=== PATIENT | male | born 2000 | race Two or more races ===

== ENCOUNTER 2021-01-13 04:46 | Emergency (ER) | payer MEDICAID, SELFPAY ==
--- NOTE | ~2021-01-13 | CT_ITS ---
EXAMINATION: CT HEAD WITHOUT CONTRAST CLINICAL INFORMATION: Fall, intoxicated COMPARISON: 01/21/2013 TECHNIQUE: Contiguous axial imaging was performed from the skull base to vertex without intravenous administration of contrast. This CT examination was performed using dose optimization techniques as appropriate, variously including the following: *Automated exposure control *Adjustment of mA and/or kV according to patient size (this includes techniques or standardized protocols for targeted exams where dose is matched to indication/reason for exam; i.e. extremities or head) *Use of iterative reconstruction technique DLP: 811 mGy-cm FINDINGS: There is no evidence of acute intracranial hemorrhage or territorial infarction. No abnormal mass effect or midline shift is seen. Melgar to white matter differentiation is well preserved. No extra-axial fluid collections are identified. The ventricles are normal in size. There is no abnormal attenuation within the brain parenchyma. The osseous structures and soft tissues are normal. Mucous retention cyst in the left maxillary sinus. The mastoid air cells are well-aerated. CT/CT head/brain wo con IMPRESSION: No acute intracranial pathology.
--- NOTE | 2021-01-13 04:49 | PC.NURSE ---
CALLED TO FRONT ENTRANCE BY LUDLOW MACHINE OPERATOR OF VEHICLE WHO STATES THAT HIS FRIEND IS OVERDOSED IN CAR. PT IN FRONT SEAT, UNRESPONSIVE TO STERNAL RUB WITH PINPOINT PUPILS IN DARK ENVIRONMENT. ADMINISTERED NASAL NARCAN AND PT IMMEDIATELY OPENED EYES BEFORE NARCAN HAD A CHANCE TO BE EFFECTIVE. PT'S FRIEND REPORTS PATIENT TOOK PILLS FROM [employer] WHILE IN BATHROOM AT CLUB. PT SMOKED WEED IN CAR, SAME WEED THAT ALL 3 MALES SMOKED. FRIEND REPORTS PT WAS UNRESPONSIVE IN CAR FOR 45 MINUTES AND NOT BREATHING AT TIMES, BEFORE THEY DROVE HIM TO ER. PT REFUSING TO GET OUT OF CAR, FRIEND NOT WILLING TO BRING PT HOME. [employer] CALLED TO HELP WITH SCENE. PT DID EVENTUALLY AGREE TO COME INTO ER FOR EVALUATION. PT UNSTEADY ON FEET WHEN STANDING.
[2021-01-13 04:56] VITALS: BP 157/93; PULSE 71; RESP 16; O2SAT 100; BMI 27.6
--- NOTE | 2021-01-13 05:06 | ED.OVERDOSE ---
HPI - Overdose General Chief Complaint: ETOH/Substance Use Stated Complaint: OD Time Seen by Provider: 01/13/21 05:05 Source: other (Friends) Mode of arrival: wheelchair Limitations: altered mental status History of Present Illness HPI Narrative: Patient is brought to the emergency room by a friend in private vehicle. The friend reports that the patient was pounding at a club earlier today, took pills in the bathroom, seems that maybe he passed out in the bathroom, then seems that patient was able to get up, walk towards the car looking for marijuana. The family/friends report that the patient was unresponsive for 45 minutes in the car, they could not wake him up and therefore brought him to the emergency room. In the ER, patient was Narcan in the car, woke up immediately. Patient did not want to come in, PD called, convinced to come in for evaluation. Related Data Allergies Allergy/AdvReac Type Severity Reaction Status Date / Time No Known Allergies Allergy Unverified 05/18/20 18:32 Review of Systems Review of Systems: Yes Unobtainable due to mental condition [facility] Past Medical History Medical History (Updated 01/13/21 @ 06:14 by Andree Worthington MD) Substance abuse Social History Social History Advance Directives: Yes Advance Directives Information Provided: No Advance Directives on File: No Physical Exam Vital Signs: Vital Signs: Last Vital Signs Pulse 71 01/13/21 04:56 Resp 16 01/13/21 04:56 BP 157/93 H 01/13/21 04:56 Pulse Ox 100 01/13/21 04:56 Body Mass Index 27.6 Appearance: Somnolent, awake, keeps rolling in his bed side to side Eyes: myadriasis, Pupils equal, round and reactive to light. ENT: Pharynx normal. Neck: Normal inspection. Neck supple. No lymph nodes noted. No crepitus CVS: Normal heart rate and rhythm. Pulses normal. Normal S1 and S2 Respiratory: No respiratory distress. Breath sounds normal. No Wheezing. No rales Abdomen: Soft and nontender. No rigidity. No distention. Skin: Skin warm and dry. Normal skin color. Normal skin turgor. Extremities: No lower extremity edema. Neuro: Intoxicated, awake, cranial nerves 2-12 grossly intact Course Course Course Narrative: Head CT within normal limits. The mother is at bedside, states that the patient left against medical advice a few days from a detox program. Sign out given to Dr. Fajardo MDM - Overdose Imaging Data CT scan - head: Radiologist's impression: FINDINGS: There is no evidence of acute intracranial hemorrhage or territorial infarction. No abnormal mass effect or midline shift is seen. Melgar to white matter differentiation is well preserved. No extra-axial fluid collections are identified. The ventricles are normal in size. There is no abnormal attenuation within the brain parenchyma. The osseous structures and soft tissues are normal. Mucous retention cyst in the left maxillary sinus. The mastoid air cells are well-aerated. CT/CT head/brain wo con IMPRESSION: No acute intracranial pathology. Discharge Plan Discharge Clinical Impression: Substance abuse Overdose Qualifiers: Encounter type: initial encounter
[2021-01-13 06:00] VITALS: BP 134/86; PULSE 86; RESP 16; O2SAT 97
[2021-01-13 08:29] VITALS: RESP 16; O2SAT 97
--- NOTE | 2021-01-13 08:29 | PC.NURSE ---
momtadeo phone number [phone]) [phone])
--- NOTE | 2021-01-13 09:23 | MHC.RECOVSUP ---
Recovery Support note: Patient is a 20 year old Romansh speaking male who presented to [facility] ED due to a suspected overdose. This inspector automatic typewriter attempted to meet with patient to discuss substance use and treatment options. Patient was sleeping at the start of consultation, awoke briefly and fell back asleep. This inspector automatic typewriter was unable to meaningfully engage with patient in a discussion regarding his substance use. Patient reports he has been smoking cannabis and using other substances to get high. Patient reports he was in [place] for detox a few days ago. This inspector automatic typewriter started to discuss resources and supports with patient when patient fell back asleep. This inspector automatic typewriter met with patient's mother who to discuss patient's substance use and treatment options. Mother reports patient was going to go to college and play basketball but it all fell apart and patient has been dealing with anxiety and substance use since then. Mother feels patient would benefit from outpatient therapy. Discussed MAT, outpatient therapy, IOP, [facility] youth [facility] program with patient's mother. Provided her with contact information for this inspector automatic typewriter and the recovery support RN in the event that she has any questions regarding resources provided. This inspector automatic typewriter will contact patient tomorrow to see if he has any questions regarding resources provided. Discussed case with patient's ED provider.
[2021-01-13] MEDS: Naloxone HCl Nasal TAKE HOME 4 MG SPRAY NOSTRILALT (09:30)
--- NOTE | 2021-01-13 09:30 | PC.NURSE ---
narcan given for at home, per order.
== END 2021-01-13 09:32 | disposition home or self-care (01) ==
PROVIDERS: Emergency Provider Emergency Medicine Emergency Medical Services
DX: F19.10 Other psychoactive substance abuse, uncomplicated (principal); T50.901A Poisoning by unspecified drugs, medicaments and biological substances, accidental (unintentional), initial encounter; R40.0 Somnolence; Y92.29 Other specified public building as the place of occurrence of the external cause
CPT/HCPCS: 70450; 99284; 99285

== ENCOUNTER 2021-02-27 10:30 | Outpatient (REF) | payer MEDICAID, SELFPAY ==
[2021-03-04 06:51] LABS: Norfentanyl, Ur >500.0
[2021-03-04 06:55] LABS: Codeine, Ur NEGATIVE; Hydrocodone, Ur NEGATIVE; Hydromorphone, Ur NEGATIVE; Morphine, Ur 1792; Norhydrocodone, Ur NEGATIVE; Noroxycodone, Ur NEGATIVE; Oxycodone, Ur NEGATIVE; Oxymorphone, Ur NEGATIVE
== END 2021-02-27 10:31 | disposition home or self-care (01) ==
LOC: HO.LAB 10:30
PROVIDERS: Visit Provider Internal Medicine
DX: F11.99 Opioid use, unspecified with unspecified opioid-induced disorder (principal); F19.10 Other psychoactive substance abuse, uncomplicated; Z79.899 Other long term (current) drug therapy
CPT/HCPCS: 80305; 80354; 80364; 80365; 99202

== ENCOUNTER → 2022-02-04 10:12 | Outpatient (BNVA) | payer MEDICAID, SELFPAY | PROVIDERS: Visit Provider Internal Medicine | DX: F11.20 Opioid dependence, uncomplicated (principal) | CPT/HCPCS: 80305; 99212 ==

== ENCOUNTER 2023-01-20 20:40 | Emergency (ER) | payer BC, MEDICAID, SELFPAY ==
--- NOTE | 2023-01-20 | ECG_ITS ---
Test Reason : OVERDOSE Blood Pressure : / mmHG Vent. Rate : 088 BPM Atrial Rate : 088 BPM P-R Int : 162 ms QRS Dur : 100 ms QT Int : 358 ms P-R-T Axes : 052 075 016 degrees QTc Int : 433 ms Normal sinus rhythm Normal ECG No previous ECGs available Referred By: Generic ED Physician Electronically Signed By:BERNARD LEACH
[2023-01-20 20:44] VITALS: BP 133/88; BP 137/92; PULSE 110; PULSE 96; RESP 18; TEMP 36.6; O2SAT 100; BMI 25.1
--- NOTE | 2023-01-20 20:48 | PC.NURSE ---
pt refusing blood work at this time
--- NOTE | 2023-01-20 20:51 | PC.NURSE ---
Pt refusing capnography and cardiac monitoring at this time saying this hurts I don't want it on me . Pt educated on the importance of monitoring heart and respirations after an overdose. Pt still expressing noncompliance about it at this time. MD aware, will continue to monitor.
[2023-01-20] MEDS: Naloxone HCl Nasal TAKE HOME 4 MG SPRAY NOSTRILALT (21:18)
--- NOTE | 2023-01-20 21:25 | ED_ITS ---
HPI - Overdose General Chief Complaint: ETOH/Substance Use Stated Complaint: unresponsive Time Seen by Provider: 01/20/23 21:03 Source: patient Mode of arrival: EMS History of Present Illness HPI Narrative: 22-year-old male states that he relapsed, denies any suicidal ideation was found unresponsive in a car by a vise dander and given a total of 8 mg of Narcan. Patient refusing all attempts with detox. Patient adamant about leaving. Related Data Previous Rx's Medication Instructions Recorded buprenorphine 300 mg/1.5 mL 300 mg (1.5 mL) subcut ONCE 30 02/27/21 solution,exten.rel.subcutaneous days #1.5 mL syringe (Sublocade) buprenorphine 8 mg-naloxone 2 mg 2 film sublingual DAILY 7 days #14 02/27/21 sublingual film (Suboxone) ea buprenorphine 4 mg-naloxone 1 mg 2 film sublingual DAILY 7 days #14 02/04/22 sublingual film (Suboxone) ea Allergies Allergy/AdvReac Type Severity Reaction Status Date / Time No Known Allergies Allergy Verified 02/04/22 10:22 Review of Systems Review of Systems: Pertinent positives and negatives as stated in HPI PMFSH Past Medical History Source: nursing notes reviewed Medical History Opioid use disorder Substance abuse Social History Social History Alcohol intake: never Smoked in Last 30 Days: No e-Cigarette/Vaping Use: Currently Using Use of substances other than those prescribed or required for medical reasons: Refusing to respond Substance Use Type: Marijuana Physical Exam Vital Signs: Vital Signs: Last Vital Signs Temp 97.8 F 01/20/23 20:44 Pulse 96 01/20/23 20:44 Resp 18 01/20/23 20:44 BP 137/92 H 01/20/23 20:44 Pulse Ox 100 01/20/23 20:44 O2 Del Method Room Air 01/20/23 20:44 BMI result Body Mass Index 25.1 VITAL SIGNS: Reviewed. GENERAL: Well developed, well nourished, in no acute distress. HEAD: Normocephalic/atraumatic EYES: PERRLA, EOMI EARS: Ext canals without abnormality OROPHARYNX: no oral lesions noted, posterior pharynx clear NECK: Supple, no adenopathy LUNGS: Normal breath sounds. No adventitious sounds or accessory muscle use. SpO2<100> CARDIOVASCULAR: Regular rate and rhythm without noted murmurs ABDOMEN: Soft, non-tender, non-distended with bowel sounds. MUSCULOSKELETAL: No tenderness, deformities, or effusions noted on gross inspection. EXTREMITIES: No cyanosis, clubbing or edema. SKIN: Inspection of the skin reveals no rashes NEUROLOGIC: Alert and oriented x 4. Strength and sensation to light touch were grossly intact x 4. Medications Administered Discontinued Medications Generic Name Dose Route Start Last Admin Trade Name Freq PRN Reason Stop Dose Admin Naloxone HCl 4 mg 01/20/23 21:04 01/20/23 21:18 Naloxone Hcl Nasal Take Home 4 Mg [place] NOSTRILALT 01/20/23 21:05 4 mg ONCE ONE Administration Medical Decision Making Medical Decision Making [facility] Narrative: 22-year-old male with overdose on heroin, accidental, received 8 mg of Narcan fully awake and alert here in the emergency room no evidence of drowsiness at this time. Patient is adamant about leaving, will be discharged with home Narcan and his mother will be picking him up. Differential Diagnosis Please see the discussion above Independent Interpretation I performed an independent interpretation of an: EKG Interpretation: Normal sinus rhythm, HR-88, no STEMI, FL/QRS/QTC is within normal limits. Discharge Plan Discharge Clinical Impression: Accidental overdose Patient Disposition: Home, Self-Care Instructions: Adult Overdose (ED) Additional Instructions: 1. You have been given home Narcan should you require it or if anyone in your facility requires reversal. 2. Please continue on your Suboxone. Return to the ER for any worsening symptoms. Prescriptions: No Action buprenorphine-naloxone [Suboxone] 8-2 mg film 2 film sublingual DAILY 7 Days Qty: 14 0RF Rx Instructions: place 1 strip/tab under (each) side of tongue Sublocade 300 mg/1.5 mL solution, extended rel syringe 300 mg subcut ONCE 30 Days Qty: 1.5 1RF buprenorphine-naloxone [Suboxone] 4-1 mg film 2 film sublingual DAILY 7 Days Qty: 14 0RF Rx Instructions: place 1 strip/tab under (each) side of tongue
== END 2023-01-20 22:04 | disposition home or self-care (01) ==
LOC: HO.ED 21:35
PROVIDERS: Emergency Provider Student in an Organized Health Care Education/Training Program
DX: R40.4 Transient alteration of awareness (principal); T40.1X1A Poisoning by heroin, accidental (unintentional), initial encounter; F11.10 Opioid abuse, uncomplicated; Y92.810 Car as the place of occurrence of the external cause
CPT/HCPCS: 93005; 99283; 99285

== ENCOUNTER 2023-04-16 18:23 | Inpatient (IN) | payer BC, MEDICAID, SELFPAY ==
--- NOTE | ~2023-04-16 | CT_ITS ---
EXAMINATION: CT SOFT TISSUE NECK WITH CONTRAST CLINICAL INFORMATION: Left facial swelling. COMPARISON: None available. TECHNIQUE: Following the intravenous administration of 100 mL of Omnipaque 350 intravenous contrast, helical imaging was performed in the axial plane with generation of coronal and sagittal reformatted images. This CT examination was performed using dose optimization techniques as appropriate, variously including the following: *Automated exposure control *Adjustment of mA and/or kV according to patient size (this includes techniques or standardized protocols for targeted exams where dose is matched to indication/reason for exam; i.e. extremities or head) *Use of iterative reconstruction technique DLP: 501 mGy-cm FINDINGS: There is a large left peritonsillar hypodensity suggestive of abscess with cellulitis and underlying enlarged left palatine tonsil from acute tonsillitis. Moderate deviation of pharyngeal airway to the right of midline is noted. The right tonsil is normal with right parapharyngeal soft tissues appearing normal. There is moderate enlarged left carotid/jugular lymph nodes. The largest lymph node measures 1.5 cm on sagittal image 41/7. Visualized bilateral parotid and the submandibular glands are symmetrical and normal. The left submandibular gland is slightly displaced inferiorly due to acute tonsillitis. There is mild mucoperiosteal thickening left maxillary sinus. The right maxillary, frontal, ethmoid and sphenoid sinuses are clear. The mastoid sinuses are clear as well. Visualized intraparenchymal brain parenchyma is unremarkable. There is reversal of cervical lordosis with no bony abnormality seen. CT/CT soft tissue neck w IV con IMPRESSION: Acute left tonsillitis with moderate size left peritonsillar abscess deviating the airway to the right of midline. Reactive but abnormal left carotid/jugular lymph nodes.
[2023-04-16 18:43] VITALS: BP 134/90; PULSE 120; RESP 20; TEMP 36.9; O2SAT 99; BMI 22.4
--- NOTE | 2023-04-16 18:43 | ED_ITS ---
HPI - Dental/Oral General Chief complaint: Dental/Oral Stated complaint: infection in mouth Time Seen by Provider: 04/16/23 19:46 Source: patient Mode of arrival: ambulatory Limitations: no limitations History of Present Illness HPI Narrative: Patient been having throat pain for last 1 week seen dentist advise to have his wisdom tooth removed. Comes here as for last 2 days has more pain in the throat unable to swallow unable to open his mouth no fever Related Data Home Medications Medication Instructions Recorded Confirmed acetaminophen 325 mg tablet 650 mg PO Q6H PRN Pain 04/16/23 04/16/23 amoxicillin 500 mg capsule 500 mg PO TID 04/16/23 04/16/23 ibuprofen 800 mg tablet 800 mg PO Q4-6H PRN pain 04/16/23 04/16/23 Allergies Allergy/AdvReac Type Severity Reaction Status Date / Time No Known Allergies Allergy Verified 02/04/22 10:22 Review of Systems 2 Review of Systems: Yes all other systems are reviewed and are negative [facility] Past Medical History Medical History Opioid use disorder Substance abuse Social History Social History Alcohol intake: unknown Patient Tobacco Use Status: Never used Tobacco Smoked in Last 30 Days: No e-Cigarette/Vaping Use: Currently Using Use of substances other than those prescribed or required for medical reasons: No Substance Use Type: Marijuana Advance Directives: No Advance Directives Information Provided: No Nutrition Risks: No Nutritional Risk Physical Exam Vital Signs: Vital Signs: Last Vital Signs Temp 98.9 F 04/17/23 00:00 Pulse 95 04/17/23 00:00 Resp 18 04/17/23 00:00 BP 143/89 H 04/17/23 00:00 Pulse Ox 97 04/17/23 00:00 O2 Del Method Room Air 04/17/23 00:00 BMI result Body Mass Index 22.4 Appearance: Alert. Oriented X3. No acute distress. ENT: Pharynx normal. Oral Mucosa moist left peritonsillar abscess+++ unable to open mouth more than 2 cm Neck: Normal inspection. Neck supple. Upper cervical lymphadenopathy++ CVS: Normal heart rate and rhythm. Pulses normal. Respiratory: No respiratory distress. Equal air entry bilateral, no wheezing/rales/rhonchi Abdomen: Soft and nontender. Bowel sounds are present, Skin: Skin warm and dry. Normal skin color. Normal skin turgor. Neuro: Oriented X 3. Course Course Course Narrative: KAROLINE: 23-year-old male with a past medical history of substance abuse, presenting to the ED complaining of left-sided facial swelling, sore throat, difficulty talking/swallowing x 2 days. Admits he is supposed to have all 4 of his wisdom teeth extracted, saw his dentist this week and is supposed to follow- up with oral surgeon however cannot get in until September + trismus, left-sided facial swelling noted with uvular deviation to the right. Appears very uncomfortable Labs, ESR/CRP, neck CT ordered. IVF, IV Toradol, IV Decadron ordered Full HPI, ROS and PE to be performed by primary ED provider. Medications Administered Generic Name Dose Route Start Last Admin Trade Name Freq PRN Reason Stop Dose Admin Enoxaparin Sodium 40 mg 04/16/23 23:00 04/16/23 23:09 Enoxaparin Sodium 40 Mg/0.4 Ml Syringe SUBCUT Not Given Q24H BHUPINDER Ampicillin Sodium/Sulbactam 100 mls @ 200 mls/hr 04/16/23 23:00 04/16/23 23:44 Sodium 3 gm/ Sodium Chloride IV Infused Q6H BHUPINDER Infusion Sodium Chloride 3 ml 04/17/23 00:00 04/16/23 23:59 0.9 % Sodium Chloride Flush 3 Ml Syringe IVFLUSH 3 ml QSHIFT BHUPINDER Administration Discontinued Medications Generic Name Dose Route Start Last Admin Trade Name Freq PRN Reason Stop Dose Admin Dexamethasone Sodium Phosphate 10 mg 04/16/23 18:46 04/16/23 19:26 Dexamethasone Sod Phosphate 10 Mg/Ml Vial IVPUSH 04/16/23 18:47 10 mg ONCE ONE Administration Sodium Chloride 1,000 mls @ 999 mls/hr 04/16/23 19:00 04/16/23 20:30 Ns IV 04/16/23 20:00 Infused .Q1H1M BHUPINDER Infusion Piperacillin Sod/Tazobactam 50 mls @ 100 mls/hr 04/16/23 20:02 04/16/23 21:44 Sod 3.375 gm/ Sodium Chloride IV 04/16/23 20:31 Infused ONCE ONE Infusion Iohexol 100 ml 04/16/23 20:03 04/16/23 20:03 Iohexol 350 Mg/Ml 100 Ml Infus..Btl IV 04/16/23 20:04 60 ml ONCE ONE Administration Ketorolac Tromethamine 15 mg 04/16/23 18:46 04/16/23 19:26 Ketorolac Tromethamine 15 Mg/Ml Vial IVPUSH 04/16/23 18:47 15 mg ONCE ONE Administration Lidocaine HCl 1 appl 04/16/23 20:11 04/16/23 20:57 Lidocaine Hcl 4 % [id number]-[id number] 4 Ml TOPICAL 04/16/23 20:12 1 appl ONCE ONE Administration Lidocaine HCl 1 appl 04/16/23 21:00 04/16/23 21:51 Lidocaine Hcl 4 % [id number] 4 Ml TOPICAL 04/16/23 21:01 1 appl ONCE ONE Administration Medical Decision Making Medical Decision Making MDM Narrative: Needle aspiration was done left peritonsillar abscess and about 12 cc of pus drained Lab Data [facility] Lab Attestation statement: I reviewed the patient's lab results. 04/16/23 19:02 04/16/23 19:02 Labs: Lab Results 04/16/23 04/16/23 04/16/23 Range/Units 19:02 19:02 19:02 WBC 22.5 H (4.8-10.8) X10*3/uL RBC 4.71 (4.60-5.80) X10*6/uL Hgb 14.4 (14.0-18.0) g/dl Hct 41.6 L (42.0-52.0) % MCV 88.3 (80.0-98.0) fL MCH 30.6 (27.0-33.0) pg MCHC 34.6 (31.0-36.0) g/dl RDW 12.1 (11.0-16.0) % Plt Count 444 H (160-400) X10*3/uL MPV 9.1 L (9.4-12.4) fL Immature Gran % (Auto) 0.8 H (0.0-0.4) % Neut % (Auto) 84.2 H (45-73) % Lymph % (Auto) 7.3 L (20-40) % Calhoun % (Auto) 7.5 (2-11) % Eos % (Auto) 0.0 (0-4) % Baso % (Auto) 0.2 (0-2) % Lymph # (Auto) 1.6 (1.2-4.9) X10*3/uL [place]oun # (Auto) 1.7 H (0.1-1.2) X10*3/uL Eos # (Auto) 0.0 (0.0-0.4) X10*3/uL Baso # (Auto) 0.1 (0.0-0.2) X10*3/uL Abs Immat Gran (auto) 0.17 H (0.00-0.03) X10*3/uL Absolute Neuts (auto) 18.9 H (2.0-8.3) x10*3/uL Absolute Nucleated RBC 0.000 (0.0-0.012) X10*3/uL Nucleated RBC % (auto) 0.0 (0.0-0.2) /100WBC Smear Tech's Comments VERIFIED ESR 73 H (0-15) MM/HR Sodium 139 (135-145) mmol/L Potassium 4.1 (3.3-5.1) mmol/L Chloride 102 (96-108) mmol/L Carbon Dioxide 27 (22-29) mmol/L Anion Gap 14 (12-20) BUN 9 (9-16) mg/dL Creatinine 0.94 (0.5-1.4) mg/dL Estim Creat Clear Calc 130.4 Estimated GFR > 60 Random Glucose 133 H (60-115) mg/dL Lactic Acid (0.5-2.0) mmol/L Calcium 9.6 (8.4-10.2) mg/dL C-Reactive Protein 23.58 H (< or = 0.50) mg/dL S. pyogenes GrpA CIERA (Negative) 04/16/23 04/16/23 Range/Units 19:02 20:31 WBC (4.8-10.8) X10*3/uL RBC (4.60-5.80) X10*6/uL Hgb (14.0-18.0) g/dl Hct (42.0-52.0) % MCV (80.0-98.0) fL MCH (27.0-33.0) pg MCHC (31.0-36.0) g/dl RDW (11.0-16.0) % Plt Count (160-400) X10*3/uL MPV (9.4-12.4) fL Immature Gran % (Auto) (0.0-0.4) % Neut % (Auto) (45-73) % Lymph % (Auto) (20-40) % Cal[place]oun % (Auto) (2-11) % Eos % (Auto) (0-4) % Baso % (Auto) (0-2) % Lymph # (Auto) (1.2-4.9) X10*3/uL [place] # (Auto) (0.1-1.2) X10*3/uL Eos # (Auto) (0.0-0.4) X10*3/uL Baso # (Auto) (0.0-0.2) X10*3/uL Abs Immat Gran (auto) (0.00-0.03) X10*3/uL Absolute Neuts (auto) (2.0-8.3) x10*3/uL Absolute Nucleated RBC (0.0-0.012) X10*3/uL Nucleated RBC % (auto) (0.0-0.2) /100WBC Smear Tech's Comments ESR (0-15) MM/HR Sodium (135-145) mmol/L Potassium (3.3-5.1) mmol/L Chloride (96-108) mmol/L Carbon Dioxide (22-29) mmol/L Anion Gap (12-20) BUN (9-16) mg/dL Creatinine (0.5-1.4) mg/dL Estim Creat Clear Calc Estimated GFR Random Glucose (60-115) mg/dL Lactic Acid 0.8 (0.5-2.0) mmol/L Calcium (8.4-10.2) mg/dL C-Reactive Protein (< or = 0.50) mg/dL S. pyogenes GrpA CIERA Negative (Negative) Discharge Plan Discharge Clinical Impression: Peritonsillar abscess Patient Disposition: Admitted As Inpatient
--- NOTE | 2023-04-16 19:03 | MHC.EDTECH ---
PATIENT BLOOD DRAWN AND STREAP SWAB COLLECTED AND SENT TO LAB ,PATIENT WAS BROUGHT BACK TO ROOM # [id number].
[2023-04-16 19:08] LABS: Basophils Absolute Auto 0.1 X10*3/uL (0.0-0.2); Basophils Percent Auto 0.2 % (0-2); Hematocrit 41.6 % (42.0-52.0); Hemoglobin 14.4 g/dl (14.0-18.0); Imm Gran Abs Auto 0.17 X10*3/uL (0.00-0.03); Imm Gran Pct Auto 0.8 % (0.0-0.4); Lymphocytes Absolute Auto 1.6 X10*3/uL (1.2-4.9); Lymphocytes Percent Auto 7.3 % (20-40); MANUAL DIFF FLAG SCAN; Mean Corpuscular HGB Conc 34.6 g/dl (31.0-36.0); Mean Corpuscular Hemoglobin 30.6 pg (27.0-33.0); Mean Corpuscular Volume 88.3 fL (80.0-98.0); Mean Platelet Volume 9.1 fL (9.4-12.4); Monocytes Absolute Auto 1.7 X10*3/uL (0.1-1.2); Monocytes Percent Auto 7.5 % (2-11); Neutrophils Absolute Auto 18.9 x10*3/uL (2.0-8.3); Neutrophils Percent Auto 84.2 % (45-73); Platelet Count 444 X10*3/uL (160-400); Red Blood Count 4.71 X10*6/uL (4.60-5.80); Red Cell Distribution Width 12.1 % (11.0-16.0); SCAN SMEAR FLAG 1; White Blood Count 22.5 X10*3/uL (4.8-10.8)
[2023-04-16 19:20] LABS: Anion Gap 14 (12-20); Blood Urea Nitrogen 9 mg/dL (9-16); C Reactive Protein 23.58 mg/dL (< or = 0.50); Calcium 9.6 mg/dL (8.4-10.2); Carbon Dioxide 27 mmol/L (22-29); Chloride 102 mmol/L (96-108); Creatinine Clr Calc Pharmacy 130.4; Estimated Glomerular Filt Rate > 60; Glucose Random 133 mg/dL (60-115); Potassium 4.1 mmol/L (3.3-5.1); Sodium 139 mmol/L (135-145)
[2023-04-16 19:22] LABS: IDNOW Serial# 08D9AD1C; Strep A Nucleic Acid Negative (Negative)
[2023-04-16] MEDS: Ketorolac Tromethamine 15 MG/ML VIAL IVPUSH (19:26)
[2023-04-16] MEDS: dexAMETHasone sod phosphate 10 MG/ML VIAL IVPUSH (19:26)
[2023-04-16] MEDS: 0.9 % Sodium Chloride 1,000 ML 999 ML IV (19:26)
[2023-04-16 19:28] VITALS: PULSE 92; RESP 20; TEMP 38.3; O2SAT 98
[2023-04-16 19:42] LABS: SLIDE REVIEW VERIFIED
[2023-04-16] MEDS: iohexoL 350 MG/ML 100 ML INFUS..BTL IV (20:03)
[2023-04-16 20:19] LABS: Erythrocyte Sedimentation Rate 73 MM/HR (0-15)
--- NOTE | 2023-04-16 20:32 | PC.NURSE ---
MD MCGILL ATTEMPTED TO DRAIN ABSCESS IN MOUTH x2 but thinks the abscess is much deeper than can be reached with needle. MEDICATED WITH LIDOCAINE FIRST. PT SPITTING UP BLOOD AND SOME PUS. TOLERATING WELL REPORTS RELIEF OF PAIN. BLOOD CULTURES/LACTIC BEING DRAWN NOW BY TECH, WILL ADMINISTER ABX NEXT.
[2023-04-16 20:50] LABS: Lactic Acid 0.8 mmol/L (0.5-2.0)
[2023-04-16] MEDS: Piperacillin Sodium/Tazobactam 3.375 GM in 0.9 % Sodium Chloride 50 ML IV (20:57)
[2023-04-16] MEDS: Lidocaine HCl 4 % Laryng-O-Jet 4 ML 1 APPL TOPICAL ×2 (20:57→21:51)
--- NOTE | 2023-04-16 21:59 | PC.NURSE ---
MD MCGILL DRAINED 12 CC OF PUS FROM ABSCESS IN MOUTH . PT TOLERATED EXTREMELY WELL AND REPORTS GREAT RELIEF OF PAIN.
--- NOTE | 2023-04-16 22:25 | P.HPHOSP_ITS ---
History of Present Illness Date of Service: 04/16/23 Chief Complaint: Pain in mouth This is a 23-year-old male with pertinent history of tobacco use disorder who presents to the emergency department for evaluation of pain in mouth and fevers. Patient states he missed his appointment to remove wisdom teeth with his dentist. Over the last 1 week, he has been having left-sided swelling which has been progressive and associated with pain. On the day of presentation, patient was unable to open his mouth completely. He also has associated fevers or chills. Patient states he started amoxicillin 2 days ago but his symptoms have progressed. He denies chest discomfort, palpitations, shortness of breath, abdominal pain, changes in urinary or bowel habits. No respiratory distress. In the emergency department, imaging with tonsillitis and peritonsillar abscess. 12 cc pus drained in the ER and patient with significant improvement of symptoms. Review of Systems Constitutional: Constitutional: Reports chills, Reports fatigue and Reports fever(s) ENT: Reports dental pain and Reports sore throat Cardiovascular: Cardiovascular: Reports no additional cardiovascular complaints Respiratory: Respiratory: Reports no additional respiratory complaints Gastrointestinal: Gastrointestinal: Reports no additional gastrointestinal complaints Endocrine: Endocrine: Reports fatigue PMFSH Medical History Opioid use disorder Substance abuse Pertinent family history: No family history of early CAD Social History Alcohol intake: unknown Smoked in Last 30 Days: No e-Cigarette/Vaping Use: Currently Using Use of substances other than those prescribed or required for medical reasons: No Substance Use Type: Marijuana Advance Directives: No Advance Directives Information Provided: No Meds Allergies Allergy/AdvReac Type Severity Reaction Status Date / Time No Known Allergies Allergy Verified 02/04/22 10:22 Home Medications Medication Instructions Recorded Confirmed Last Taken Type acetaminophen 325 mg tablet 650 mg PO Q6H PRN Pain 04/16/23 04/16/23 Unknown History amoxicillin 500 mg capsule 500 mg PO TID 04/16/23 04/16/23 Unknown History ibuprofen 800 mg tablet 800 mg PO Q4-6H PRN pain 04/16/23 04/16/23 Unknown History Physical Exam Vital Signs and Narrative: Vital Signs: Last Vital Signs Temp 100.9 F H 04/16/23 19:28 Pulse 92 04/16/23 19:28 Resp 20 04/16/23 19:28 BP 134/90 H 04/16/23 18:43 Pulse Ox 98 04/16/23 19:28 O2 Del Method Room Air 04/16/23 19:28 BMI result Body Mass Index 22.4 Young male lying in bed in no distress Neck supple, no JVD, swollen left-sided tonsils with erythema Regular rate and rhythm, S1-S2 heard Regular breath sounds bilaterally, no wheezing or crackles appreciated Abdomen soft nontender, no guarding, no rigidity Patient is awake, alert and oriented to self, place, time and person ; no focal motor deficit Psych: Normal mood No pedal edema Results Labs 04/16/23 19:02 04/16/23 19:02 Labs: Laboratory Results - last 24 hr 04/16/23 04/16/23 04/16/23 19:02 19:02 19:02 MCV 88.3 MCH 30.6 MCHC 34.6 RDW 12.1 Plt Count 444 H MPV 9.1 L Immature Gran % (Auto) 0.8 H Neut % (Auto) 84.2 H Lymph % (Auto) 7.3 L [place] % (Auto) 7.5 Eos % (Auto) 0.0 Baso % (Auto) 0.2 Lymph # (Auto) 1.6 [place] # (Auto) 1.7 H Eos # (Auto) 0.0 Baso # (Auto) 0.1 Abs Immat Gran (auto) 0.17 H Absolute Neuts (auto) 18.9 H Absolute Nucleated RBC 0.000 Nucleated RBC % (auto) 0.0 Smear Tech's Comments VERIFIED ESR 73 H Anion Gap 14 Estim Creat Clear Calc 130.4 Estimated GFR > 60 Random Glucose 133 H Lactic Acid Calcium 9.6 C-Reactive Protein 23.58 H S. pyogenes GrpA CIERA 04/16/23 04/16/23 19:02 20:31 MCV MCH MCHC RDW Plt Count MPV Immature Gran % (Auto) Neut % (Auto) Lymph % (Auto) [place] % (Auto) Eos % (Auto) Baso % (Auto) Lymph # (Auto) [place] # (Auto) Eos # (Auto) Baso # (Auto) Abs Immat Gran (auto) Absolute Neuts (auto) Absolute Nucleated RBC Nucleated RBC % (auto) Smear Tech's Comments ESR Anion Gap Estim Creat Clear Calc Estimated GFR Random Glucose Lactic Acid 0.8 Calcium C-Reactive Protein S. pyogenes GrpA CIERA Negative Imaging Radiologist's Impressions: Impressions Soft Tissue Neck CT 04/16/23 20:03 IMPRESSION: Acute left tonsillitis with moderate size left peritonsillar abscess deviating the airway to the right of midline. Reactive but abnormal left carotid/jugular lymph nodes. Assessment and Plan (1) Tonsillitis: Status: Acute Plan This is a 23-year-old male with pertinent history of tobacco use disorder who presents to the emergency department for evaluation of pain in mouth and fevers. #. Sepsis due to acute tonsillitis with peritonsillar abscess. Resuscitated with IV crystalloids. Initiating empiric IV antibiotics. Percutaneous drainage done in the ER and 12 cc pus obtained. Patient with marked improvement in symptoms and is able to open his mouth and eat after I&D. Continue to monitor symptoms. Lactic acid and blood culture obtained. Will need follow-up with ENT #. Tobacco use disorder. Refused nicotine patch. Counseled regarding cessation DVT prophylaxis: Jamila Full code Admit as inpatient and will require two night minimum hospital stay for IV antibiotics Time Spent With Patient Time: Total time managing care of this patient today ____ minutes. Quality Stroke Does the patient have a stroke diagnosis?: No VTE Prior VTE?: No VTE Risk Level:: Medical - moderate - high VTE Device Contraindication: Treatment Not Indicated VTE Drug Contraindication: N/A - Med Ordered
[2023-04-16] MEDS: Ampicillin Sodium/Sulbactam Na 3 GM in 0.9 % Sodium Chloride 100 ML IV (23:06)
[2023-04-16 23:15] VITALS: BP 140/79; PULSE 110; RESP 18; TEMP 37.3; O2SAT 100
--- NOTE | 2023-04-16 23:56 | PC.NURSE ---
REPORT CALLED TO OVERFLOW RN
[2023-04-16] MEDS: 0.9 % Sodium Chloride Flush 3 ML SYRINGE IVFLUSH (23:59)
[2023-04-17] VITALS: BP 143/89; PULSE 95; RESP 18; TEMP 37.2; O2SAT 97
[2023-04-17] MEDS: Ampicillin Sodium/Sulbactam Na 3 GM in 0.9 % Sodium Chloride 100 ML IV ×4 (04:53→22:42)
[2023-04-17 05:01] LABS: Basophils Percent Auto 0.2 % (0-2); Hematocrit 38.3 % (42.0-52.0); Hemoglobin 13.5 g/dl (14.0-18.0); Imm Gran Pct Auto 0.8 % (0.0-0.4); MANUAL DIFF FLAG SCAN; Mean Corpuscular HGB Conc 35.2 g/dl (31.0-36.0); Mean Corpuscular Hemoglobin 31.2 pg (27.0-33.0); Mean Corpuscular Volume 88.5 fL (80.0-98.0); Mean Platelet Volume 9.2 fL (9.4-12.4); Monocytes Absolute Auto 1.3 X10*3/uL (0.1-1.2); Monocytes Percent Auto 5.1 % (2-11); Neutrophils Absolute Auto 22.7 x10*3/uL (2.0-8.3); Neutrophils Percent Auto 89.9 % (45-73); Platelet Count 429 X10*3/uL (160-400); Red Blood Count 4.33 X10*6/uL (4.60-5.80); Red Cell Distribution Width 12.1 % (11.0-16.0); SCAN SMEAR FLAG 1; White Blood Count 25.3 X10*3/uL (4.8-10.8)
[2023-04-17] MEDS: Acetaminophen 325 MG TABLET 650 MG PO (05:05)
[2023-04-17 05:17] LABS: Anion Gap 14 (12-20); Blood Urea Nitrogen 12 mg/dL (9-16); Calcium 9.1 mg/dL (8.4-10.2); Carbon Dioxide 24 mmol/L (22-29); Chloride 105 mmol/L (96-108); Estimated Glomerular Filt Rate > 60; Glucose Random 133 mg/dL (60-115); Potassium 4.2 mmol/L (3.3-5.1); Sodium 139 mmol/L (135-145)
[2023-04-17 05:22] LABS: SLIDE REVIEW VERIFIED
--- NOTE | 2023-04-17 07:33 | PHA.MEDREC ---
Pharmacy Consult ? Medication Reconciliation Pharmacy has completed the medication reconciliation.
--- NOTE | 2023-04-17 08:02 | PC.NURSE ---
kitchen called for applesauce to administer patients medications
[2023-04-17] MEDS: 0.9 % Sodium Chloride Flush 3 ML SYRINGE IVFLUSH (08:07)
--- NOTE | 2023-04-17 08:58 | PC.NURSE ---
patienta&ox3, vss, pt stated his pain had reduced to 2/10, pt requesting greek ice- kitchen called to obtain, PA at bedside speaking with patient, pt continues to have lt facial swelling- pt denies difficulty breathing and is speaking in full sentences, call oconnor within reach, will continue to monitor
[2023-04-17 12:11] VITALS: BP 101/56; PULSE 83; RESP 20; TEMP 36.7; O2SAT 99
--- NOTE | 2023-04-17 13:05 | PC.NURSE ---
patient a&ox3, currently denying pain, speaking in full sentences, pt eating lunch, call oconnor within reach, will continue to monitor
--- NOTE | 2023-04-17 14:16 | P.PNIM_ITS ---
Subjective Subjective Date of Service: 04/17/23 Interval History: seen and examined this morning follow up for left tonsilitis with left peritonsillar abscess s/p needle aspiration in ED patient reports feeling improved since admission but still with difficulty opening mouth. no difficulty swallowing, no drooling. feels that facial swelling has improved feeling warm but no fever documented Review of Systems Review of Systems: Yes all other systems are reviewed and are negative Constitutional Constitutional: Denies chills and Denies fever(s) Cardiovascular Cardiovascular: Denies chest pain, Denies palpitations and Denies dyspnea Respiratory Respiratory: Denies cough and Denies dyspnea Endocrine Endocrine: Denies palpitations Physical Exam Vital Signs: Vital Signs: Last Vital Signs Temp 98.1 F 04/17/23 12:11 Pulse 83 04/17/23 12:11 Resp 20 04/17/23 12:11 BP 101/56 L 04/17/23 12:11 Pulse Ox 99 04/17/23 12:11 O2 Del Method Room Air 04/17/23 12:11 BMI result Body Mass Index 22.4 Const: General: cooperative, comfortable, alert and awake Nutritional Appearance: average body habitus Orientation/consciousness: patient oriented x3 HEENT: Other: unable to open mouth wide enough to examine Resp: Effort & Inspection: normal respiratory effort, able to speak in complete sentences, no respiratory distress and no use of accessory muscles Cardio: Rate: regular rate Heart sounds: S1 normal heart sound present and S2 normal heart sound present GI: Inspection: No distended Palpation (GI): Soft to palpation and nontender Neuro: General: patient oriented x3 and CN's II-XI intact bilaterally Extrem: General: Yes no pedal edema Objective Data Active Medications Acetaminophen (Acetaminophen 325 Mg Tablet) 650 mg PO Q6H PRN PRN Reason: Pain, Mild (Pain Scale 1-3) Last Admin: 04/17/23 05:05 Dose: 650 mg Documented By: TEA Enoxaparin Sodium (Enoxaparin Sodium 40 Mg/0.4 Ml Syringe) 40 mg SUBCUT Q24H [facility] Last Admin: 04/16/23 23:09 Dose: Not Given Documented By: FRANCIA Non-Admin Reason: Patient Refused Ampicillin Sodium/Sulbactam (Sodium 3 gm/ Sodium Chloride) 100 mls @ 200 mls/hr IV Q6H [facility] Last Infusion: 04/17/23 12:15 Dose: 0 mls/hr Documented By: SYDNEY Ketorolac Tromethamine (Ketorolac Tromethamine 15 Mg/Ml Vial) 15 mg IVPUSH Q6H PRN PRN Reason: Pain, Moderate(Pain Scale 4-6) Melatonin (Melatonin 3 Mg Tablet) 6 mg PO BEDTIME PRN PRN Reason: Insomnia Ondansetron HCl (Ondansetron Hcl 4 Mg/2 Ml Vial) 4 mg IVPUSH Q8H PRN PRN Reason: Nausea and Vomiting Sodium Chloride (0.9 % Sodium Chloride Flush 3 Ml Syringe) 3 ml IVFLUSH QSHIFT [facility] Last Admin: 04/17/23 08:07 Dose: 3 ml Documented By: SYDNEY Labs 04/17/23 04:41 04/17/23 04:41 Labs: Laboratory Results - last 24 hr 04/16/23 04/16/23 04/16/23 19:02 19:02 19:02 MCV 88.3 MCH 30.6 MCHC 34.6 RDW 12.1 Plt Count 444 H MPV 9.1 L Immature Gran % (Auto) 0.8 H Neut % (Auto) 84.2 H Lymph % (Auto) 7.3 L [place] % (Auto) 7.5 Eos % (Auto) 0.0 Baso % (Auto) 0.2 Lymph # (Auto) 1.6 [place] # (Auto) 1.7 H Eos # (Auto) 0.0 Baso # (Auto) 0.1 Abs Immat Gran (auto) 0.17 H Absolute Neuts (auto) 18.9 H Absolute Nucleated RBC 0.000 Nucleated RBC % (auto) 0.0 Smear Tech's Comments VERIFIED ESR 73 H Anion Gap 14 Estim Creat Clear Calc 130.4 Estimated GFR > 60 Random Glucose 133 H Lactic Acid Calcium 9.6 C-Reactive Protein 23.58 H S. pyogenes GrpA [facility]ER[facility] 04/16/23 04/16/23 04/17/23 19:02 20:31 04:41 MCV 88.5 MCH 31.2 MCHC 35.2 RDW 12.1 Plt Count 429 H MPV 9.2 L Immature Gran % (Auto) 0.8 H Neut % (Auto) 89.9 H Lymph % (Auto) 4.0 L [place] % (Auto) 5.1 Eos % (Auto) 0.0 Baso % (Auto) 0.2 Lymph # (Auto) 1.0 L [place] # (Auto) 1.3 H Eos # (Auto) 0.0 Baso # (Auto) 0.0 Abs Immat Gran (auto) 0.20 H Absolute Neuts (auto) 22.7 H Absolute Nucleated RBC 0.000 Nucleated RBC % (auto) 0.0 Smear Tech's Comments VERIFIED ESR Anion Gap Estim Creat Clear Calc Estimated GFR Random Glucose Lactic Acid 0.8 Calcium C-Reactive Protein S. pyogenes GrpA [facility] Negative 04/17/23 04:41 MCV MCH MCHC RDW Plt Count MPV Immature Gran % (Auto) Neut % (Auto) Lymph % (Auto) [place] % (Auto) Eos % (Auto) Baso % (Auto) Lymph # (Auto) [place] # (Auto) Eos # (Auto) Baso # (Auto) Abs Immat Gran (auto) Absolute Neuts (auto) Absolute Nucleated RBC Nucleated RBC % (auto) Smear Tech's Comments ESR Anion Gap 14 Estim Creat Clear Calc 168.0 Estimated GFR > 60 Random Glucose 133 H Lactic Acid Calcium 9.1 C-Reactive Protein S. pyogenes GrpA [facility] Assessment and Plan (1) Peritonsillar abscess: Status: Acute Plan This is a 23-year-old male with pertinent history of tobacco use disorder who presents to the emergency department for evaluation of pain in mouth and fevers. Sepsis due to acute tonsillitis with peritonsillar abscess. met sepsis criteria with fever, tachycardia, leukocytosis. slight increase in WBC but did get a dose of steroids 04/16 s/p needle aspiration in the ER 04/16 with drainage of 12 cc pus improvement since admission but still with difficulty opening mouth and feverish continue IV unasyn, started 04/16 blood cultures pending Will need follow-up with ENT Tobacco use disorder. Refused nicotine patch. Counseled regarding cessation DVT prophylaxis: Lovenox Full code requires ongoing hospital stay for IV antibiotics Time Spent With Patient Time: Total time managing care of this patient today ____ minutes. Quality Stroke Does the patient have a stroke diagnosis?: No VTE Prior VTE?: No VTE Risk Level:: Medical - moderate - high VTE Device Contraindication: Treatment Not Indicated VTE Drug Contraindication: N/A - Med Ordered
[2023-04-17] MEDS: 0.9 % Sodium Chloride 1,000 ML 100 ML IVCONT (14:39)
--- NOTE | 2023-04-17 14:41 | PC.NURSE ---
ivf started per order
--- NOTE | 2023-04-17 14:53 | MHC.CM.PN ---
CM MET WITH PT AT BEDSIDE. PT LIVES WITH [place]INGS. INDEPENDENT AT BASELINE. - THRIVE ASSESSMENT. NO HCP, DECLINES AT THIS TIME. + COVID VAX WITH [facility]. PCP AT [facility] IN [place]. DP: HOME, NO SERVICES ANTICIPATED. FAMILY WILL TRANSPORT AT DC. CM WITH CONTINUE TO FOLLOW FOR ANY CHANGE IN DC PLAN/NEEDS.
--- NOTE | 2023-04-17 15:28 | PC.NURSE ---
report called to floor
[2023-04-17 16:00] VITALS: BP 120/74; PULSE 75; RESP 16; TEMP 36.7; O2SAT 98
[2023-04-17 16:28] VITALS: BP 120/74; PULSE 60; RESP 18; TEMP 36.3; O2SAT 98
--- NOTE | 2023-04-17 22:49 | PC.NURSE ---
Patient refused Lovenox,risks explained to patient,encouraged ambulation,Dr. Gaffney notified.
[2023-04-17 23:26] VITALS: BP 108/57; PULSE 58; RESP 16; TEMP 36.1; O2SAT 99
[2023-04-18] MEDS: 0.9 % Sodium Chloride 1,000 ML 100 ML IVCONT (00:29)
[2023-04-18] MEDS: Ampicillin Sodium/Sulbactam Na 3 GM in 0.9 % Sodium Chloride 100 ML IV ×4 (05:15→22:17)
[2023-04-18 07:25] VITALS: BP 111/64; PULSE 70; RESP 18; TEMP 36.1; O2SAT 99
[2023-04-18 09:03] LABS: Hematocrit 37.4 % (42.0-52.0); Hemoglobin 12.6 g/dl (14.0-18.0); Mean Corpuscular HGB Conc 33.7 g/dl (31.0-36.0); Mean Corpuscular Hemoglobin 30.6 pg (27.0-33.0); Mean Corpuscular Volume 90.8 fL (80.0-98.0); Mean Platelet Volume 9.6 fL (9.4-12.4); Platelet Count 412 X10*3/uL (160-400); Red Blood Count 4.12 X10*6/uL (4.60-5.80); Red Cell Distribution Width 12.4 % (11.0-16.0); White Blood Count 13.4 X10*3/uL (4.8-10.8)
--- NOTE | 2023-04-18 13:23 | P.PNIM_ITS ---
Subjective Subjective Date of Service: 04/18/23 Interval History: seen and examined this morning follow up for peritonsillar abscess feeling better, able to open mouth easier, tolerating diet, less facial swelling no difficulty swallowing Review of Systems Review of Systems: Yes all other systems are reviewed and are negative Constitutional Constitutional: Denies chills and Denies fever(s) ENT Ears, Nose, Mouth, and Throat: Denies dizziness Cardiovascular Cardiovascular: Denies chest pain, Denies palpitations and Denies dyspnea Respiratory Respiratory: Denies cough and Denies dyspnea Gastrointestinal Gastrointestinal: Denies abdominal pain Neurologic Neurologic: Denies dizziness Endocrine Endocrine: Denies palpitations Physical Exam Vital Signs: Vital Signs: Last Vital Signs Temp 97 F 04/18/23 07:25 Pulse 70 04/18/23 07:25 Resp 18 04/18/23 07:25 BP 111/64 04/18/23 07:25 Pulse Ox 99 04/18/23 07:25 O2 Del Method Room Air 04/18/23 07:25 BMI result Body Mass Index 22.4 Const: General: cooperative, comfortable, alert and awake Nutritional Appearance: average body habitus Orientation/consciousness: patient oriented x3 HEENT: Other: able to open mouth more today, but still limited Resp: Effort & Inspection: normal respiratory effort, able to speak in complete sentences, no respiratory distress and no use of accessory muscles Cardio: Rate: regular rate Heart sounds: S1 normal heart sound present and S2 normal heart sound present GI: Inspection: No distended Palpation (GI): Soft to palpation and nontender Neuro: General: patient oriented x3 and CN's II-XI intact bilaterally Extrem: General: Yes no pedal edema Objective Data Active Medications Acetaminophen (Acetaminophen 325 Mg Tablet) 650 mg PO Q6H PRN PRN Reason: Pain, Mild (Pain Scale 1-3) Last Admin: 04/17/23 05:05 Dose: 650 mg Documented By: TEA Enoxaparin Sodium (Enoxaparin Sodium 40 Mg/0.4 Ml Syringe) 40 mg SUBCUT Q24H [facility] Last Admin: 04/17/23 22:47 Dose: Not Given Documented By: SHAKIR Non-Admin Reason: Patient Refused Ampicillin Sodium/Sulbactam (Sodium 3 gm/ Sodium Chloride) 100 mls @ 200 mls/hr IV Q6H [facility] Last Infusion: 04/18/23 11:54 Dose: 0 mls/hr Documented By: EMELYN Sodium Chloride (Ns) 1,000 mls @ 100 mls/hr IVCONT .Q10H [facility] Last Infusion: 04/18/23 11:13 Dose: 0 mls/hr Documented By: EMELYN Ketorolac Tromethamine (Ketorolac Tromethamine 15 Mg/Ml Vial) 15 mg IVPUSH Q6H PRN PRN Reason: Pain, Moderate(Pain Scale 4-6) Melatonin (Melatonin 3 Mg Tablet) 6 mg PO BEDTIME PRN PRN Reason: Insomnia Ondansetron HCl (Ondansetron Hcl 4 Mg/2 Ml Vial) 4 mg IVPUSH Q8H PRN PRN Reason: Nausea and Vomiting Sodium Chloride (0.9 % Sodium Chloride Flush 3 Ml Syringe) 3 ml IVFLUSH QSHIFT [facility] Last Admin: 04/18/23 08:51 Dose: Not Given Documented By: EMELYN Non-Admin Reason: IV Running Labs 04/18/23 08:36 04/17/23 04:41 Labs: Laboratory Results - last 24 hr 04/18/23 08:36 MCV 90.8 MCH 30.6 MCHC 33.7 RDW 12.4 Plt Count 412 H MPV 9.6 Absolute Nucleated RBC 0.000 Nucleated RBC % (auto) 0.0 Microbiology Microbiology Results: Microbiology 04/16/23 20:31 Blood Culture - Preliminary Blood - Venous 04/16/23 20:56 Blood Culture - Preliminary Blood - Venous No growth after 24 hours. Assessment and Plan (1) Peritonsillar abscess: Status: Acute Plan This is a 23-year-old male with pertinent history of tobacco use disorder who presents to the emergency department for evaluation of pain in mouth and fevers. Sepsis due to acute tonsillitis with peritonsillar abscess. met sepsis criteria with fever, tachycardia, leukocytosis. leukocytosis trending down s/p needle aspiration in the ER 04/16 with drainage of 12 cc pus improvement since admission continue IV unasyn, started 04/16 blood cultures 09/02 growing gram negative cocci - follow final results Will need follow-up with ENT has appt with oral surgeon for wisdom tooth extraction but not until September Tobacco use disorder. Refused nicotine patch. Counseled regarding cessation DVT prophylaxis: Lovenox Full code requires ongoing hospital stay for IV antibiotics Time Spent With Patient Time: Total time managing care of this patient today ____ minutes. Quality Stroke Does the patient have a stroke diagnosis?: No VTE Prior VTE?: No VTE Risk Level:: Medical - moderate - high VTE Device Contraindication: Treatment Not Indicated VTE Drug Contraindication: N/A - Med Ordered
[2023-04-18 15:27] VITALS: BP 123/74; PULSE 60; RESP 18; TEMP 36.6; O2SAT 99
[2023-04-18] MEDS: 0.9 % Sodium Chloride Flush 3 ML SYRINGE IVFLUSH (16:21)
[2023-04-18 23:43] VITALS: BP 106/67; PULSE 71; RESP 18; TEMP 36.3; O2SAT 99
[2023-04-19] MEDS: Ampicillin Sodium/Sulbactam Na 3 GM in 0.9 % Sodium Chloride 100 ML IV (04:59)
[2023-04-19 07:11] VITALS: BP 120/72; PULSE 80; RESP 18; TEMP 36.9; O2SAT 100
--- NOTE | 2023-04-19 10:41 | PM.DS ---
DS: Providers Provider Date of Service: 04/19/23 Date of admission: 04/16/23 22:23 Primary care physician: Unknown Physician Consults: 04/19/23 07:24 Consult to Infectious Diseases Routine Consulting Provider: [facility] Infectious Disease Reason for consultation: GNC, tootth abscess DS: Diagnosis Discharge Diagnosis (1) Peritonsillar abscess: Status: Acute DS: Summary Hospital Course Hospital Course: 23-year-old man treated for sepsis secondary to tonsillitis and peritonsillar abscess. Status post needle aspiration of 12 cc of pus drained in the ED. patient has been treated with IV Unasyn since admission. He has less swelling to left jaw area and tolerating a diet. No difficulty swallowing, no fever. Patient feeling ready to go home. Plan will be for a total of 14 days of antibiotics. Treated for 3 days with Unasyn, will continue Augmentin for the remaining. Patient is to follow up with a dental surgeon for removal of his infected wisdom tooth. He can use ibuprofen or Tylenol for pain. Tobacco use disorder. Refused nicotine patch. Discussed importance of smoking cessation. Time Spent with Patient Time attestation: Total time managing care of this patient today ____ minutes. Discharge coordination time: Greater than 30 minutes Quality: Safe Use of Opioids Does Pt have an Active Cancer Diagnosis on the Problem List?: No Quality: Stroke Does the patient have a stroke diagnosis?: No Physical Exam Vital Signs: Vital Signs: Last Vital Signs Temp 98.5 F 04/19/23 07:11 Pulse 80 04/19/23 07:11 Resp 18 04/19/23 07:11 BP 120/72 04/19/23 07:11 Pulse Ox 100 04/19/23 07:11 O2 Del Method Room Air 04/19/23 07:11 BMI result Body Mass Index 22.4 Appearing in no acute distress head is normocephalic atraumatic eyes pupils are PERRLA sclera is anicteric mouth throat mucous membranes are intact and moist neck is supple no lymphadenopathy, no JVD noted lung sounds are clear to auscultation heart regular rate rhythm, clear S1, S2 positive bowel sounds, abdomen is soft, nontender neuro patient is alert x3, no focal deficits Mild Left jaw/neck swelling DS: Data Data Completed and Pending Labs on day of discharge: Preliminary micro results at discharge 04/16/23 20:31 Blood Culture - Preliminary Blood - Venous 04/16/23 20:56 Blood Culture - Preliminary Blood - Venous No growth after 48 hours. Discharge Plan Discharge Anticipated Discharge Date/Time: 04/19/23 09:41 Patient Disposition: Home, Self-Care Discharge Diagnosis: Peritonsillar abscess with drainage Discharge Medications: New amoxicillin-pot clavulanate 875-125 mg tablet 1 tab PO BID Qty: 22 0RF Continued acetaminophen 325 mg Tablet 650 mg PO Q6H PRN (Reason: Pain) ibuprofen 800 mg tablet 800 mg PO Q4-6H PRN (Reason: pain) Discontinued amoxicillin 500 mg capsule 500 mg PO TID Rx Instructions: x 7 days, finish 04/19/23 Discharge Orders: Discharge Order (Routine); Ordered 04/19/23 Ordered By: Gaby Silveira Diet: Advance to usual diet Activity on Discharge: As tolerated Stand Alone Forms: Patient Portal Discharge page Care Plan Goals: complete resolution of symptoms Return to the emergency department for any difficulty swallowing, breathing or increase in swelling Health Concerns: peritonsillar abscess Plan of Treatment: follow-up with dental surgeon for removal of abscessed tooth Complete antibiotic course as directed Assessment: see discharge summary
== END 2023-04-19 11:11 | disposition home or self-care (01) | DRG 710 ==
LOC: HO.ED 19:46 → HO.EDOVER 22:32 → HO.S3 04-17 15:16
PROVIDERS: Physician Assistant; Physician Assistant Medical; Admitting Provider Student in an Organized Health Care Education/Training Program; Emergency Provider Internal Medicine; PCP Nurse Practitioner; Visit Provider Nurse Practitioner Acute Care
DX: A41.9 Sepsis, unspecified organism (principal); F11.20 Opioid dependence, uncomplicated; J36 Peritonsillar abscess; F17.210 Nicotine dependence, cigarettes, uncomplicated; Z71.6 Tobacco abuse counseling
CPT/HCPCS: 36415; 70491; 80048; 83605; 85025; 85027; 85652; 86140; 87040; 87076; 87185; 87205; 87651; 99285; J0295; J1100; J1650; J1885; J2543; Q9967

== ENCOUNTER → 2023-04-16 22:23 | Outpatient (BNV) | payer BC, MEDICAID, SELFPAY | PROVIDERS: Admitting Provider Student in an Organized Health Care Education/Training Program; Emergency Provider Internal Medicine; Visit Provider Student in an Organized Health Care Education/Training Program | DX: J36 Peritonsillar abscess (principal) | CPT/HCPCS: 99222; 99232; 99239 ==